=== PATIENT | male | born 1970 | race Caucasian/White ===

== ENCOUNTER → 2021-10-06 | Outpatient (CLI) | payer SELFPAY ==
[2021-10-06 11:22] LABS: African American GFR (CKD) >90 (>60 ml/min/1.73 sqM); Anion Gap 9 mmol/L; Blood Urea Nitrogen 5 mg/dL (9-20); Calcium 8.8 mg/dL (8.4-10.2); Carbon Dioxide 29 mmol/L (22-30); Chloride 98 mmol/L (98-107); Glucose 100 mg/dL (74-99); Non-African American GFR(CKD) >90 (>60 ml/min/1.73 sqM); Potassium 3.7 mmol/L (3.5-5.1); Sodium 136 mmol/L (137-145)
[2021-10-06 12:12] LABS: Basophils # (A) 0.1 k/uL (0-0.2); Basophils % (A) 1 %; Eosinophils # (A) 0.3 k/uL (0-0.7); Eosinophils % (A) 6 %; HCT 50.8 % (39.0-53.0); HGB 16.3 gm/dL (13.0-17.5); Lymphocytes # (A) 1.5 k/uL (1.0-4.8); Lymphocytes % (A) 28 %; MCH 31.9 pg (25.0-35.0); MCHC 32.1 g/dL (31.0-37.0); MCV 99.4 fL (80.0-100.0); Mean Platelet Volume 7.9; Monocytes # (A) 0.5 k/uL (0-1.0); Monocytes % (A) 8 %; Neutrophils # (A) 2.9 k/uL (1.3-7.7); Neutrophils % (A) 55 %; Platelet Count 202 k/uL (150-450); RBC 5.11 m/uL (4.30-5.90); RDW 13.3 % (11.5-15.5); WBC 5.4 k/uL (3.8-10.6)
== END | disposition home or self-care (01) ==
LOC: LABPAT 10:29
PROVIDERS: ATTEND Orthopaedic Surgery Hand Surgery
DX: Z01.812 Encounter for preprocedural laboratory examination (principal); S64.32XA Injury of digital nerve of left thumb, initial encounter; Y99.9 Unspecified external cause status
CPT/HCPCS: 36415; 80048; 85025; 93005

== ENCOUNTER 2021-10-07 08:15 | Day surgery (SDC) | payer BC, OTHER ==
--- NOTE | 2021-10-05 09:53 | P.HPOR ---
History of Present Illness H&P Date: 10/05/21 Chief Complaint: Right thumb digital nerve laceration Subjective: This is a 51 year old male that presents today for initial evaluation regarding a right thumb injury that occurred on 09/09/21 at work. Patient was lifting a large metal cylinder when the edge cut the base and palmar aspect of his thumb. He was seen originally at an outside hospital then [facility] for sutures and suture removal. He has had persistent numbness along the ulnar boarder of the thumb distal to the laceration. He denies any prior injury. Physical Examination: RUE: AIN/PIN/Radial/Ulnar/Median motor intact. Radial/Ulnar/Median SILT. 2+/4 Radial/Ulnar pulses palpated. 5/5 APB, 5/5 FDI. Negative Finkelsteins, negative CMC grind, negative Durkan's compression. FPL/EPL intact against resistance. Transverse 2cm laceration at base of thumb. Insensate along ulnar/volar boarder of the thumb distal to laceration. Radial boarder of thumb sensation intact. Imaging: X-Rays of the right hand demonstrate no acute osseus abnormality with no fracture/dislocation. Impression: 1.) Right thumb ulnar digital nerve laceration. Plan: Diagnosis and treatment options were discussed with the patient. Patient has findings concerning for a right thumb ulnar digital nerve laceration, I recommend surgical exploration with possible digital nerve repair. Risks and benefit of surgery including bleeding, infection, damage to surrounding tissue, need for further surgery, residual numbness were discussed and the patient wished to go forward with surgery. Basic labs/EKG will be ordered pre- operatively. I anticipate 6 to 8 weeks of left handed work only until he is released for full normal duty in order to protect possible nerve repair. -Derik Argueta DO Orthopedic Hand/Upper Extremity Surgeon Past Medical History Past Medical History: No Reported History History of Any Multi-Drug Resistant Organisms: None Reported Past Surgical History: No Surgical Hx Reported Past Psychological History: No Psychological Hx Reported Past Alcohol Use History: Occasional Past Drug Use History: None Reported Medications and Allergies Home Medications Medication Instructions Recorded Confirmed Type HYDROcodone/APAP 5-325MG [Brandon 1 each PO Q6HR PRN #6 tab 11/18/14 Rx 5-325] Ibuprofen [Motrin] 600 mg PO Q6HR PRN #20 tab 11/18/14 Rx Allergies Allergy/AdvReac Type Severity Reaction Status Date / Time No Known Allergies Allergy Verified 07/22/14 10:14 Physical Examination Osteopathic Statement: *. No significant issues noted on an osteopathic structural exam other than those noted in the History and Physical/Consult.
[2021-10-06 08:42] VITALS: BMI 18.6
[~2021-10-07 08:15] MED LIST: DEXAMETHASONE SOD PHOSPHATE 4 MG/ML 1 ML VIAL IV ONE; LACTATED RINGERS 1,000 ML IV SCH; LIDOCAINE 1% (10MG/ML) FOR IV START INTRADERMA PRN; ONDANSETRON 4 MG/2 ML VIAL IVP PRN; fentaNYL (PF) 50 MCG/ML 2 ML AMP IV PRN
[2021-10-07 08:41] VITALS: RESP 16; TEMP 98.5
[2021-10-07] MEDS ORDERED: PHENYLEPHRINE-0.9% NACL SYG 1,000 MCG/10 ML SYRINGE ONE (09:45)
[2021-10-07] MEDS ORDERED: KETOROLAC 15 MG/ML 1 ML VIAL ONE (09:45)
[2021-10-07] MEDS ORDERED: fentaNYL (PF) 50 MCG/ML 2 ML AMP ONE (09:45)
[2021-10-07] MEDS ORDERED: PROPOFOL 10 MG/ML 20 ML VIAL IV ONE (09:45)
[2021-10-07] MEDS ORDERED: BUPIVACAINE (PF) 0.5% 30 ML VIAL SQ ONE ×3 (10:10→10:37)
[2021-10-07] MEDS ORDERED: LACTATED RINGERS 1,000 ML IV ONE (10:16)
[2021-10-07 11:50] VITALS: BP 137/89; PULSE 89
--- NOTE | 2021-10-07 19:58 | P.OP ---
Date of Procedure: 10/07/21 Preoperative Diagnosis: Right thumb digital nerve laceration Postoperative Diagnosis: 1.) Right thumb ulnar digital nerve branch laceration, complete. 2.)Right thumb radial digital nerve partial thickness laceration. Procedure(s) Performed: 1.) Right thumb ulnar digital nerve branch laceration repair Anesthesia: TRA Surgeon: Derik Argueta Business Account Specialist #1: Boogie Morrison Estimated Blood Loss (ml): 0 Pathology: none sent Condition: stable Disposition: PACU Description of Procedure: This is a 51 year old male who sustained a right thumb laceration, he presented 4 weeks after his injury to the office with numbness distal to his incision most notably on the ulnar boarder of the thumb, he presents today for wound exploration with possible nerve, tendon repair. Risks and benefits of surgery were discussed with the patient including bleeding, damage to surrounding tissue, infection, need for further surgery as well as risks of anesthesia including pulmonary embolism and even and the patient wished to proceed with surgical intervention. The patient was seen in the pre-operative area by myself. Consent and H&P were completed and updated. The correct extremity was marked in the pre-operative area by myself and all other questions were answered . Operative Narrative: The patient was brought to the operating room by the department of anesthesia. They remained on the portable stretcher and a rolling hand table was brought to the side of the operative extremity. Pre-operative time out was performed indicating the correct patient, procedure and laterality. All in the room agreed. Pre-operative antibiotics were given prior to skin incision. The patient was then drifted off to sleep by the department of anesthesia. A nonsterile tourniquet was then applied to the operative extremity and the right upper extremity was then prepped and draped in normal sterile fashion. The operative extremity was the exsanguinated with an esmarch bandage and the tourniquet was inflated to 250mmHg. Previous transverse laceration at volar ulnar base of the thumb was incised with a 15 blade scalpel. The laceration was extended proximal and distal to aid in visualization. Blunt dissection was then taken down through subcutaneous tissues and the ulnar digital nerve to the thumb was identified, a large branch of the ulnar digital nerve was completely lacerated therefore decision to proceed with direct repair was performed. Under loupe magnification 3 8-0 nylon simple sutures were placed in the proximal and distal ends of the nerve to perform a epineural repair in a tension free manner. Blunt dissection was then carried more radial, the radial digital nerve appeared to be intact however there appeared to by a partial thickness radial digital nerve laceration was healing with new neuroma formation. Due to the dense continuity of the two nerve ends with signs of healing the decision was made not to take down healing nerve tissue. The FPL tendon was then identified and was intact with no trauma. Skin closure was performed with 4-0 nylon suture and a thumb block was performed using 8cc of 0.5% bupivicaine. Sterile dressing consisting of adaptic, 4x4's, webril and a thumb spica splint was applied. Tourniquet was let down and the hand had immediate normal perfusion. The patient was then woken by the department of anesthesia and transferred to PACU in stable condition. Derik Argueta D.O. Orthopedic Hand/Upper Extremity Surgeon
== END 2021-10-07 12:07 | disposition home or self-care (01) ==
LOC: OR 08:15
PROVIDERS: ATTEND Orthopaedic Surgery Hand Surgery
DX: S64.32XA Injury of digital nerve of left thumb, initial encounter (principal); S64.31XA Injury of digital nerve of right thumb, initial encounter; W26.8XXA Contact with other sharp object(s), not elsewhere classified, initial encounter; J44.9 Chronic obstructive pulmonary disease, unspecified; F17.210 Nicotine dependence, cigarettes, uncomplicated
CPT/HCPCS: 64831; J1100; J2405; J0690; J3010; J1885; J2370; J2704